=== PATIENT | male | born 1985 | race Caucasian/White ===

== ENCOUNTER 2016-09-14 12:50 | Observation (INO) | payer BC ==
[~2016-09-14] VITALS: Ht 188 cm; Wt 115.5 kg
[2016-09-14] MEDS ORDERED: DIAZEPAM INJ 5 MG/ML 2 ML CARP IV STA (13:06)
[2016-09-14] MEDS ORDERED: METOCLOPRAMIDE HCL INJ 5 MG/ML 2 ML VIAL IV STA (13:06)
[2016-09-14] MEDS ORDERED: SODIUM CHLORIDE 0.9% 1000ML 1,000 ML IV STA (13:06)
--- NOTE | 2016-09-14 13:11 | EMERGENCY ROOM VISIT NOTE ---
History Report prepared by Yuly: Taylor Anton Under the Supervision of: Dr. David Jewell M.D. First contact with patient: 12:57 Chief Complaint: DIZZY Stated Complaint: SEVERE DIZZINESS Nursing Triage Summary: pt has been having continued dizziness and nausea, has been taking meclazine and zofran and feels like it is just making him sleepy pt was told her has benign vertigo at [facility] History of Present Illness The patient is a 31 year old male who presents to the Emergency Room with complaints of persistent dizziness that began four days ago. The patient's reports that the patient arrived back from [place] Tuesday evening and became dizzy. The patient states that it started suddenly Tuesday as he was getting out of his car, noting that he became woozy. The patient's states that the patient was evaluated at [facility] Tuesday and had a normal CT scan. She states that the patient was prescribed Zofran for his nausea and Meclizine for his dizziness, but denies any relief. The patient states that he notices the dizziness persistently with standing, but notes that if he sits up for awhile, his symptoms dissipate. He additionally notes nausea with standing. The patient's states that they have tried the Anika Maneuver 8-10 times without any relief of his symptoms. The patient states that he still notices dizziness even when his eyes are closed. He reports difficulty ambulating due to the dizziness. 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 The patient notes that a few months ago he noticed intermittent blurred vision and dizziness. He states that he was evaluated at an urgent care center in [place] and prescribed medication for allergies. Source of History: patient Onset: four days ago Position: other (global) Quality: other (dizziness) Timing: other (persistent) Associated Symptoms: + nausea Note: Associated Symptoms: difficulty ambulating Review of Systems See HPI for pertinent positives & negatives. A total of 10 systems reviewed and were otherwise negative. Past Medical & Surgical Medical Problems: (1) Acid reflux (2) IBS (irritable bowel syndrome) Family History Diabetes mellitus Heart disease Hypertension Social History Smoking Status: Never Smoker Smokeless Tobacco Use: No Alcohol Use: occasionally Marital Status: Housing Status: lives with family Occupation Status: employed Current/Historical Medications Scheduled Meclizine Hcl (Meclizine Hcl), Unknown Dose PO Q6 Scheduled PRN Ondansetron Hcl (Zofran), Unknown Dose PO Q6 PRN for Nausea Allergies Coded Allergies: No Known Allergies (Unverified , 09/14/16) Physical Exam Vital Signs Date Time Temp Pulse Resp B/P (MAP) Pulse Ox O2 Delivery O2 Flow Rate FiO2 09/14/16 16:11 77 16 125/67 100 Room Air 09/14/16 14:11 84 18 134/81 98 Room Air 09/14/16 13:41 65 16 145/86 100 Room Air 87 164/90 71 165/97 09/14/16 13:27 59 09/14/16 13:22 100 Room Air 09/14/16 12:54 36.7 83 18 135/82 100 Physical Exam GENERAL: Patient is a healthy-appearing well-nourished male, ataxic when walking HEAD: Normocephalic atraumatic EYES: Ocular movements intact pupils equal and react to light OROPHARYNX mucous membranes are moist no exudates present no erythema or edema present NECK: Supple no nuchal rigidity CHEST: Good equal expansion LUNGS: Clear and equal to auscultation CARDIAC: Normal S1 and S2 ABDOMEN: Soft nontender no guarding BACK: No CVA tenderness EXTREMITIES: No pain upon palpation normal muscle strength in all groups no clubbing cyanosis or edema NEURO: Patient is following commands and answering questions appropriately. Alert and oriented x3 Cranial Nerves 2-12 grossly intact Medical Decision & Procedures ER Provider Diagnostic Interpretation: Radiology results as stated below per my review and radiologist interpretation: MRA OF THE NECK WITH AND WITHOUT CONTRAST CLINICAL HISTORY: Vertigo. COMPARISON STUDY: None. TECHNIQUE: Unenhanced and contrast-enhanced MRA of the neck was performed. Injection of 11.5 mL of Gadavist IV was uneventful. NASCET criteria were utilized to estimate the degree of carotid stenosis. FINDINGS: The bilateral common carotid, internal carotid and vertebral arteries are patent. There is no stenosis within these vessels. There is no evidence for dissection. IMPRESSION: Normal MRA of the neck. Electronically signed by: Amanuel Olivia M.D. 09/14/2016 3:53 PM Dictated Date/Time: 09/14/2016 3:45 PM MRA OF THE INTRACRANIAL CIRCULATION WITHOUT CONTRAST CLINICAL HISTORY: Severe dizziness. COMPARISON STUDY: None. TECHNIQUE: Utilizing a 1.5 Jennifer magnet and 3-D [id number] technique, unenhanced MRA of the intracranial circulation was obtained. FINDINGS: The bilateral M1, M2, A1 and A2 segments are patent. There is no intracranial aneurysm. No abrupt vessel cut off is identified. Posterior circulation is also intact. An anterior communicating artery is present. IMPRESSION: Normal MRA of the intracranial circulation. Electronically signed by: Amanuel Olivia M.D. 09/14/2016 3:41 PM Dictated Date/Time: 09/14/2016 3:38 PM MRI OF THE BRAIN WITHOUT CONTRAST CLINICAL HISTORY: Severe dizziness. COMPARISON STUDY: None. TECHNIQUE: Utilizing a 1.5 Jennifer magnet and dedicated coil, multiplanar, multiecho imaging of the brain was performed without IV contrast. FINDINGS: There are no areas of restricted diffusion. No acute intracranial hemorrhage, midline shift or mass effect is present. Brain volume is normal. Ventricular system is normal. Basilar cisterns are patent. There are no extra-axial collections. No intracranial masses identified on this unenhanced exam. A prominent perivascular space within the left basal ganglia is noted. Calvarial signal is normal. Orbits are unremarkable. There is no fluid within the bilateral mastoid air cells. No parenchymal signal abnormality is present. IMPRESSION: Normal unenhanced MRI of the brain. Electronically signed by: Amanuel Olivia M.D. 09/14/2016 3:38 PM Dictated Date/Time: 09/14/2016 3:35 PM Laboratory Results 09/14/16 13:15 Red Blood Count 5.40, Mean Corpuscular Volume 87.4, Mean Corpuscular Hemoglobin 30.0, Mean Corpuscular Hemoglobin Concent 34.3, Mean Platelet Volume 10.5, Neutrophils (%) (Auto) 75.9, Lymphocytes (%) (Auto) 18.0, Monocytes (%) (Auto) 5.3, Eosinophils (%) (Auto) 0.3, Basophils (%) (Auto) 0.2, Neutrophils # (Auto) 7.90, Lymphocytes # (Auto) 1.87, Monocytes # (Auto) 0.55, Eosinophils # (Auto) 0.03, Basophils # (Auto) 0.02 09/14/16 13:15 Test 09/14/16 13:15 09/14/16 13:23 White Blood Count 10.40 K/uL (4.8-10.8) Red Blood Count 5.40 M/uL (4.7-6.1) Hemoglobin 16.2 g/dL (14.0-18.0) Hematocrit 47.2 % (42-52) Mean Corpuscular Volume 87.4 fL (80-100) Mean Corpuscular Hemoglobin 30.0 pg (25-34) Mean Corpuscular Hemoglobin Concent 34.3 g/dl (32-36) Platelet Count 224 K/uL (130-400) Mean Platelet Volume 10.5 fL (7.4-10.4) Neutrophils (%) (Auto) 75.9 % Lymphocytes (%) (Auto) 18.0 % Monocytes (%) (Auto) 5.3 % Eosinophils (%) (Auto) 0.3 % Basophils (%) (Auto) 0.2 % Neutrophils # (Auto) 7.90 K/uL (1.4-6.5) Lymphocytes # (Auto) 1.87 K/uL (1.2-3.4) Monocytes # (Auto) 0.55 K/uL (0.11-0.59) Eosinophils # (Auto) 0.03 K/uL (0-0.5) Basophils # (Auto) 0.02 K/uL (0-0.2) RDW Standard Deviation 42.5 fL (36.4-46.3) RDW Coefficient of Variation 13.4 % (11.5-14.5) Immature Granulocyte % (Auto) 0.3 % Immature Granulocyte # (Auto) 0.03 K/uL (0.00-0.02) Anion Gap 6.0 mmol/L (3-11) Est Creatinine Clear Calc Drug Dose 123.0 ml/min Estimated GFR () 94.1 Estimated GFR (Non- 81.2 BUN/Creatinine Ratio 8.3 (10-20) Bedside Glucose 95 mg/dl (70-99) Calcium Level 9.4 mg/dl (8.5-10.1) Total Bilirubin 0.6 mg/dl (0.2-1) Direct Bilirubin 0.1 mg/dl (0-0.2) Aspartate Amino Transf (AST/SGOT) 11 U/L (15-37) Alanine Aminotransferase (ALT/SGPT) 34 U/L (12-78) Alkaline Phosphatase 69 U/L (45-117) Total Protein 8.5 gm/dl (6.4-8.2) Albumin 4.3 gm/dl (3.4-5.0) Thyroid Stimulating Hormone (TSH) 1.950 uIu/ml (0.300-4.500) Urine Color YELLOW Urine Appearance CLEAR (CLEAR) Urine pH 6.5 (4.5-7.5) Urine Specific [place] 1.023 (1.000-1.030) Urine Protein NEG (NEG) Urine Glucose (UA) NEG (NEG) Urine Ketones TRACE (NEG) Urine Occult Blood NEG (NEG) Urine Nitrite NEG (NEG) Urine Bilirubin NEG (NEG) Urine Urobilinogen NEG (NEG) Urine Leukocyte Esterase NEG (NEG) Labs reviewed by ED physician. Medications Administered Medications (Trade) Dose Ordered Sig/Jessica Route Start Time Stop Time Status Last Admin Dose Admin Diazepam (Valium Inj) 10 mg NOW STAT IV 09/14/16 13:06 09/14/16 13:09 DC 09/14/16 13:40 10 MG Metoclopramide HCl (Reglan Inj) 10 mg NOW STAT IV 09/14/16 13:06 09/14/16 13:09 DC 09/14/16 13:40 10 MG Sodium Chloride 1,000 ml @ 999 mls/hr Q1H1M STAT IV 09/14/16 13:06 09/14/16 14:06 DC 09/14/16 13:40 999 MLS/HR Meclizine HCl (Antivert Tab) 25 mg NOW STAT PO 09/14/16 16:02 09/14/16 16:03 DC 09/14/16 16:12 25 MG ECG Indication: other (dizziness) Rate (beats per minute): 66 Rhythm: normal sinus Findings: no acute ischemic change, no ectopy ED Course 1259: Past medical records reviewed. The patient was evaluated in room C1B. A complete history and physical examination was performed. 1306: Ordered Sodium Chloride 1000 ml @ 999 mls/hr IV, Reglan Inj 10 mg IV, Valium Inj 10 mg IV. 1602: Ordered Meclizine HCl 25 mg PO. 1615: I reevaluated the patient at this time. I performed the Steedman Hallpike Maneuver on the patient and it appears to affect his left side. I then performed the Anika Maneuver on him several times without success. I discussed all the exam findings with him and I discussed the treatment plan. He verbalized complete understanding and agreement. He is going to be evaluated for further treatment. 1638: Ordered Promethazine HCl 25 m/Sodium Chloride 51 ml @ 204 mls/hr IV. 1641: I discussed the patients case with DIAMOND Lanza. He is going to evaluate the patient for further treatment. Medical Decision Differential diagnosis: Etiologies such as appendicitis, diverticulitis, PUD, biliary pathology, UTI, pancreatitis, obstruction, mesenteric ischemia, aortic pathology, infections, inflammatory bowel disease, renal colic, as well as others were entertained. Blood Pressure Screening: Patient was found to have an elevated blood pressure and was referred to their primary care doctor for recheck and further treatment Medication Reconciliation: I attest that I have personally reviewed the patient' s current medication list This is a 31-year-old male who presents emergency department complaining of severe dizziness. The patient is severely ataxic and walks right into [place]. He was at [facility] 4 days ago when he had a CT of the head. This was reported as normal. Based on this finding the patient was sent for an MRI MRA of the head and neck. These are found to be normal as well. The patient was given 10 of Valium, meclizine. Repeat examination revealed no improvement in the patient's symptoms. I attempted to do Anika maneuvers on the patient to relieve his dizziness with no success. Consults Time Called: 1634 Consulting Physician: DIAMOND Lanza Returned Call: 1641 I discussed the patients case with DIAMOND Lanza. He is going to evaluate the patient for further treatment. Impression Primary Impression: Vertigo Scribe Attestation The scribe's documentation has been prepared under my direction and personally reviewed by me in its entirety. I confirm that the note above accurately reflects all work, treatment, procedures, and medical decision making performed by me. Departure Information Dispostion Being Evaluated By Hospitalist
[2016-09-14 13:27] LABS: BASO % 0.2 %; BASO ABS # 0.02 K/uL (0-0.2); COMPLETE YES; EOS % 0.3 %; HEMATOCRIT 47.2 % (42-52); IG% 0.3 %; LYMPH ABS # 1.87 K/uL (1.2-3.4); MEAN CELL VOLUME 87.4 fL (80-100); MEAN CORPUSCULAR HGB CONC 34.3 g/dl (32-36); MEAN PLATELET VOLUME 10.5 fL (7.4-10.4); MONO % 5.3 %; NEUT % 75.9 %; PLATELET COUNT 224 K/uL (130-400)
[2016-09-14 13:37] LABS: URINE APPEARANCE CLEAR (CLEAR); URINE BILIRUBIN NEG (NEG); URINE COLOR YELLOW; URINE NITRITE NEG (NEG); URINE PH 6.5 (4.5-7.5); URINE SPECIFIC GRAVITY 1.023 (1.000-1.030); UROBILINOGEN NEG (NEG)
[2016-09-14 13:46] LABS: MANUAL MICROSCOPIC REQUIRED? NO; REVIEW REQ? NO
[2016-09-14 13:50] LABS: BUN/CREATININE RATIO 8.3 (10-20); CALCIUM 9.4 mg/dl (8.5-10.1); CREATININE 1.2 mg/dl (0.60-1.40)
[2016-09-14 14:00] LABS: THYROID STIMULATING HORMONE 1.95 uIu/ml (0.300-4.500)
--- NOTE | 2016-09-14 15:39 | DIAGNOSTIC IMAGING REPORT ---
MRI OF THE BRAIN WITHOUT CONTRAST CLINICAL HISTORY: Severe dizziness. COMPARISON STUDY: None. TECHNIQUE: Utilizing a 1.5 Jennifer magnet and dedicated coil, multiplanar, multiecho imaging of the brain was performed without IV contrast. FINDINGS: There are no areas of restricted diffusion. No acute intracranial hemorrhage, midline shift or mass effect is present. Brain volume is normal. Ventricular system is normal. Basilar cisterns are patent. There are no extra-axial collections. No intracranial masses identified on this unenhanced exam. A prominent perivascular space within the left basal ganglia is noted. Calvarial signal is normal. Orbits are unremarkable. There is no fluid within the bilateral mastoid air cells. No parenchymal signal abnormality is present. IMPRESSION: Normal unenhanced MRI of the brain. Electronically signed by: Amanuel Olivia M.D. 09/14/2016 3:38 PM Dictated Date/Time: 09/14/2016 3:35 PM
--- NOTE | 2016-09-14 15:42 | DIAGNOSTIC IMAGING REPORT ---
MRA OF THE INTRACRANIAL CIRCULATION WITHOUT CONTRAST CLINICAL HISTORY: Severe dizziness. COMPARISON STUDY: None. TECHNIQUE: Utilizing a 1.5 Jennifer magnet and 3-D [id number] technique, unenhanced MRA of the intracranial circulation was obtained. FINDINGS: The bilateral M1, M2, A1 and A2 segments are patent. There is no intracranial aneurysm. No abrupt vessel cut off is identified. Posterior circulation is also intact. An anterior communicating artery is present. IMPRESSION: Normal MRA of the intracranial circulation. Electronically signed by: Amanuel Olivia M.D. 09/14/2016 3:41 PM Dictated Date/Time: 09/14/2016 3:38 PM
[2016-09-14] MEDS ORDERED: GADAVIST IV PRN (15:45)
--- NOTE | 2016-09-14 15:54 | DIAGNOSTIC IMAGING REPORT ---
MRA OF THE NECK WITH AND WITHOUT CONTRAST CLINICAL HISTORY: Vertigo. COMPARISON STUDY: None. TECHNIQUE: Unenhanced and contrast-enhanced MRA of the neck was performed. Injection of 11.5 mL of Gadavist IV was uneventful. NASCET criteria were utilized to estimate the degree of carotid stenosis. FINDINGS: The bilateral common carotid, internal carotid and vertebral arteries are patent. There is no stenosis within these vessels. There is no evidence for dissection. IMPRESSION: Normal MRA of the neck. Electronically signed by: Amanuel Olivia M.D. 09/14/2016 3:53 PM Dictated Date/Time: 09/14/2016 3:45 PM
[2016-09-14] MEDS ORDERED: MECLIZINE HCL 25 MG TAB PO STA (16:02)
[2016-09-14] MEDS ORDERED: MECL1CHW4 PO (16:36)
[2016-09-14] MEDS ORDERED: ONDA4TAB46 PO (16:36)
[2016-09-14] MEDS ORDERED: PROMETHAZINE HCL INJ 25 MG in SODIUM CHLORIDE 0.9% 50ML 50 ML IV STA (16:39)
[2016-09-14] MEDS ORDERED: PROMETHAZINE HCL INJ 12.5 MG in SODIUM CHLORIDE 0.9% 50ML 50 ML IV PRN (17:00)
[2016-09-14] MEDS ORDERED: LORAZEPAM 2 MG/ML 1 ML VIAL IV PRN (17:00)
--- NOTE | 2016-09-14 17:46 | History and Physical ---
History & Physical Date & Time of Service: Sep 14, 2016 at 17:38 Chief Complaint: Severe Dizziness Primary Care Physician: No Doctor, Assigned History of Present Illness This 31-year-old male who presents with intractable vertigo. 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 Almost immediately began feeling dizzy. The patient then got worse throughout the evening and was unable to get up because of instability of gait and dizziness. Patient sought care at a local emergency department where CT scan of laboratories. He was treated medically given meclizine therapy. The patient did not improve in fact worsen to the point where he cannot walk without walking into [place]. The patient states that the only other unusual thing about his health is a few weeks ago he was told he had allergies because he had fluid behind his tympanic membrane and was given an antihistamine. Additionally about 1 month ago he noticed back with sciatica took naproxen with help. In the emergency room the patient was very unstable to any of her vestibular testing. He denies any focal neurological deficits. Painful MRI and MRA of his brain and neck without any evidence of abnormalities. He is being observed in a facility because of intractable vertigo and instability of gait Past Medical/Surgical History Medical Problems: (1) Acid reflux Status: Chronic (2) IBS (irritable bowel syndrome) Status: Chronic Family History Diabetes mellitus Heart disease Hypertension Social History Smoking Status: Never Smoker Smokeless Tobacco Use: No Marital Status: Occupational Status: employed Allergies Coded Allergies: No Known Allergies (Unverified , 09/14/16) Home Medications Scheduled Meclizine Hcl (Meclizine Hcl), Unknown Dose PO Q6 Scheduled PRN Ondansetron Hcl (Zofran), Unknown Dose PO Q6 PRN for Nausea Review of Systems ROS: well nourished well developed NC/AT PERRL EOMI Sclera normal, mild clonus with rightward gaze Neck no JVD, no adenopathy, trachea midline Car is regular without murmur Lungs are clear no focal air loss, no cough Abd is soft non tender normal bowel sounds Extremity, no edema no cyanosis Skin no rash or lesions Neuro Alert and oriented X3 no focal loss of strength or sensation upper or lower extremity he does have symptoms with looking to the right and moving head to the right Psyche no anxiety or depression Physical Exam Vital Signs Date Time Temp Pulse Resp B/P (MAP) Pulse Ox O2 Delivery O2 Flow Rate FiO2 09/14/16 16:11 77 16 125/67 100 Room Air 09/14/16 14:11 84 18 134/81 98 Room Air 09/14/16 13:41 65 16 145/86 100 Room Air 87 164/90 71 165/97 09/14/16 13:27 59 09/14/16 13:22 100 Room Air 09/14/16 12:54 36.7 83 18 135/82 100 General Appearance: WD/WN, + moderate distress Eyes: PERRL, EOMI, + pertinent finding (mild clonus with rightward gaze) ENT: + pertinent finding (left tympanic membrane with clear fluid behind it) Neck: supple, no JVD Respiratory/Chest: chest non-tender, lungs clear, normal breath sounds Cardiovascular: regular rate, rhythm, no murmur Abdomen/GI: normal bowel sounds, non tender, soft, occult blood negative Genitourinary - Male: normal male genitalia Back: normal inspection, no CVA tenderness, no muscle spasm Extremities/Musculoskelatal: no pedal edema, normal range of motion Neurologic/Psych: jailer II-XII nml as tested, no motor/sensory deficits, alert, oriented x 3, + pertinent finding (he has no palmar drift when tested however he is marked reproduction of symptoms with any head movement) Skin: normal color, warm/dry, no rash Diagnostics Laboratory Results Results Past 24 Hours Test 09/14/16 13:15 09/14/16 13:23 Range/Units White Blood Count 10.40 4.8-10.8 K/uL Red Blood Count 5.40 4.7-6.1 M/uL Hemoglobin 16.2 14.0-18.0 g/dL Hematocrit 47.2 42-52 % Mean Corpuscular Volume 87.4 80-100 fL Mean Corpuscular Hemoglobin 30.0 25-34 pg Mean Corpuscular Hemoglobin Concent 34.3 32-36 g/dl Platelet Count 224 130-400 K/uL Mean Platelet Volume 10.5 7.4-10.4 fL Neutrophils (%) (Auto) 75.9 % Lymphocytes (%) (Auto) 18.0 % Monocytes (%) (Auto) 5.3 % Eosinophils (%) (Auto) 0.3 % Basophils (%) (Auto) 0.2 % Neutrophils # (Auto) 7.90 1.4-6.5 K/uL Lymphocytes # (Auto) 1.87 1.2-3.4 K/uL Monocytes # (Auto) 0.55 0.11-0.59 K/uL Eosinophils # (Auto) 0.03 0-0.5 K/uL Basophils # (Auto) 0.02 0-0.2 K/uL RDW Standard Deviation 42.5 36.4-46.3 fL RDW Coefficient of Variation 13.4 11.5-14.5 % Immature Granulocyte % (Auto) 0.3 % Immature Granulocyte # (Auto) 0.03 0.00-0.02 K/uL Sodium Level 141 136-145 mmol/L Potassium Level 4.0 3.5-5.1 mmol/L Chloride Level 105 98-107 mmol/L Carbon Dioxide Level 30 21-32 mmol/L Anion Gap 6.0 3-11 mmol/L Blood Urea Nitrogen 10 7-18 mg/dl Creatinine 1.20 0.60-1.40 mg/dl Est Creatinine Clear Calc Drug Dose 123.0 ml/min Estimated GFR () 94.1 Estimated GFR (Non- 81.2 BUN/Creatinine Ratio 8.3 10-20 Bedside Glucose 95 70-99 mg/dl Random Glucose 88 70-99 mg/dl Calcium Level 9.4 8.5-10.1 mg/dl Total Bilirubin 0.6 0.2-1 mg/dl Direct Bilirubin 0.1 0-0.2 mg/dl Aspartate Amino Transf (AST/SGOT) 11 15-37 U/L Alanine Aminotransferase (ALT/SGPT) 34 12-78 U/L Alkaline Phosphatase 69 45-117 U/L Total Protein 8.5 6.4-8.2 gm/dl Albumin 4.3 3.4-5.0 gm/dl Thyroid Stimulating Hormone (TSH) 1.950 0.300-4.500 uIu/ml Urine Color YELLOW Urine Appearance CLEAR CLEAR Urine pH 6.5 4.5-7.5 Urine Specific [place] 1.023 1.000-1.030 Urine Protein NEG NEG Urine Glucose (UA) NEG NEG Urine Ketones TRACE NEG Urine Occult Blood NEG NEG Urine Nitrite NEG NEG Urine Bilirubin NEG NEG Urine Urobilinogen NEG NEG Urine Leukocyte Esterase NEG NEG CXR normal Normal EKG Impression Assessment and Plan 31-year-old male with intractable vertigo Patient will be observed in our facility. He'll be given Transderm scope patch. Meclizine 50 mg every 8. Ativan for backup help with vertigo. The patient on antiemetics of Zofran and Phenergan If the patient improved the neurology consequently undertaken in the morning DVT prevention is early ambulation. VTE Prophylaxis VTE Risk Assessment Done? Y/N: Yes Risk Level: Low Given or contraindicated: Treatment not indicated
[2016-09-14] MEDS ORDERED: POLYETHYLENE (MIRALAX) 17 GM PACK PO PRN (18:30)
[2016-09-14] MEDS ORDERED: MAGNESIUM HYDROXIDE SUSP 30 ML UDC PO PRN (18:30)
[2016-09-14] MEDS ORDERED: ONDANSETRON INJ 2 MG/ML 2 ML VIAL IV PRN (18:30)
[2016-09-14] MEDS ORDERED: ACETAMINOPHEN 325 MG TAB PO PRN (18:30)
[2016-09-14] MEDS ORDERED: IV FLUIDS COMPLETED PRN (18:45)
[2016-09-14 19:25] LABS: LYME DISEASE AB IGG NEG (NEG); LYME DISEASE AB IGM NEG (NEG)
[2016-09-14] MEDS ORDERED: LORAZEPAM INJ 1 MG in SYRINGE 0.5 ML IV PRN (19:30)
[2016-09-14 19:34] VITALS: BP 128/77; PULSE 67; TEMP 36.9; O2SAT 98
[2016-09-14 19:41] VITALS: BP 128/77; PULSE 67; TEMP 36.9; O2SAT 100; Ht 188 cm; Wt 115.5 kg
[2016-09-14] MEDS ORDERED: SCOPOLAMINE 1.5 MG TDSY TD SCH (20:00)
[2016-09-14] MEDS: MECLIZINE HCL 25 MG TAB PO SCH (21:22)
[2016-09-14 23:41] VITALS: BP 122/71; PULSE 62; TEMP 36.7; O2SAT 97
[2016-09-15] MEDS: CHECK SCOPOLAMINE PATCH PLACEMENT SCH ×3 (00:18→15:26)
[2016-09-15 05:52] VITALS: BP 119/71; PULSE 64; TEMP 36.7; O2SAT 98
[2016-09-15 05:53] VITALS: BP 124/79; PULSE 73; TEMP 36.7; O2SAT 98
[2016-09-15 05:54] VITALS: BP 126/82; PULSE 76; TEMP 36.7; O2SAT 95
[2016-09-15 07:25] LABS: MEAN CELL VOLUME 86.5 fL (80-100); MEAN CORPUSCULAR HEMOGLOBIN 28.6 pg (25-34); MEAN PLATELET VOLUME 10.5 fL (7.4-10.4); PLATELET COUNT 219 K/uL (130-400); RED BLOOD COUNT 4.97 M/uL (4.7-6.1)
[2016-09-15 07:55] LABS: BUN/CREATININE RATIO 8.6 (10-20); CALCIUM 8.8 mg/dl (8.5-10.1); CREATININE 1.2 mg/dl (0.60-1.40)
[2016-09-15] MEDS: MECLIZINE HCL 25 MG TAB PO SCH (08:15)
[2016-09-15] MEDS ORDERED: LORAZEPAM 1 MG TAB PO PRN (13:45)
[2016-09-15] MEDS ORDERED: ANT25 PO (15:09)
[2016-09-15] MEDS ORDERED: ATV1 PO (15:09)
[2016-09-15] MEDS ORDERED: SCOP1.5D2 TD (15:09)
--- NOTE | 2016-09-15 15:13 | Discharge Instructions ---
Discharge Instructions Date of Service Sep 15, 2016. Admission Reason for Admission: Intractable Vertigo Discharge Discharge Diagnosis / Problem: Intractable vertigo Discharge Goals Goal(s): Improve function, Improve disease control Activity Recommendations Activity Limitations: resume your previous activity Lifting Limitations: none Exercise/Sports Limitations: as tolerated May Resume Sexual Activity: when tolerated Shower/Bathe: no limitations Driving or Machine Use: may resume on Thursday 09/21 . Instructions / Follow-Up Instructions / Follow-Up Medications: - SCOPOLAMINE PATCH: leave on for three days, make sure to remove after that time, if you do not have vertigo you can try keeping it off - MECLIZINE: 50mg twice a day, take scheduled for the next 5 days and then use as needed - ATIVAN: for additional treatment of vertigo, suggest only getting filled if your symptoms are not controlled on Scopolamine and Meclizine and maneuvers continue medications and maneuvers shown to you by therapy vertigo should resolve over the next several days FOLLOW UP - as needed for any further vertigo Current Hospital Diet Patient's current hospital diet: Regular Diet Discharge Diet Recommended Diet: Regular Diet Pending Studies Studies pending at discharge: no Work Instructions Return To Work: 1 week (may return on 09/21) Lifting Limitations: none Medical Emergencies . Who to Call and When: Medical Emergencies: If at any time you feel your situation is an emergency, please call 911 immediately. . Non-Emergent Contact Non-Emergency issues call your: Primary Care Provider Call Non-Emergent contact if: you have any medication questions . . "Provider Documentation" section prepared by Arturo Venegas. . VTE Core Measure Inpt VTE Proph given/why not?: Treatment not indicated [place] Drug Monitoring Program Search Results: no issues identified
[2016-09-15 16:13] VITALS: BP 126/82; PULSE 76; TEMP 36.7; O2SAT 95
--- NOTE | 2016-09-16 07:52 | Discharge Summary ---
Discharge Summary Date of Service Sep 16, 2016. Discharge Summary Admission Date: Sep 14, 2016 at 18:27 Discharge Date: Sep 15, 2016 Discharge Disposition: Home Principal Diagnosis: Benign positional vertigo Procedures: Anika and Dicks-Hallpike maneuvers, multiple treatments by therapy Consultations: Physical therapy Medication Reconciliation New Medications: Lorazepam (Lorazepam) 1 Mg Tab 1 MG PO Q8 PRN for Dizziness or Vertigo, #20 TAB 0 Refills Meclizine HCl (Meclizine HCl) 25 Mg Tab 50 MG PO BID, #10 TAB 1 Refill Scopolamine (Transderm-Scop) 1 Mg/3 Days Dis 1.5 MG TD Q72H, #3 PATCH 1 Refill Continued Medications: Ondansetron Hcl (Zofran) 4 Mg Tab Unknown Dose PO Q6 PRN for Nausea, TAB Discontinued Medications: Meclizine Hcl (Meclizine Hcl) 25 Mg Chw Unknown Dose PO Q6 Discharge Exam Patient seen in the early afternoon initially, was sill feeling quite dizzy, only sitting up at 30% angle in bed. However, he was revisited by therapy later in the afternoon and he was able to walk around the [place] and then sat in a chair for 30 minutes. He reported that his symptoms had improved to the point that he felt he could go home. PT was going to visit with him once more and his was going to be present so she could see the vertigo exercises and then help him at home. Given scripts for scopolamine, meclizine and Ativan for breakthrough symptoms. Review of Systems: Constitutional: No fever, No chills, No sweats, No weight loss, No weakness , No fatigue, No problem reported Eyes: No worsening of vision, No eye pain, No redness, No discharge, No diplopia, No problem reported ENT: No hearing loss, No unusual epistaxis, No nasal symptoms, No sore throat, No tinnitus, No dental problems, No trouble swallowing, No problem reported Respiratory: No cough, No sputum, No wheezing, No shortness of breath, No dyspnea on exertion, No dyspnea at rest, No hemoptysis, No problem reported Cardiovascular: No chest pain, No orthopnea, No PND, No edema, No claudication, No palpitations, No problem reported Abdomen: No pain, No nausea, No vomiting, No diarrhea, No constipation, No GI bleeding, No problem reported Musculoskeletal: No joint pain, No muscle pain, No swelling, No calf pain, No problem reported Genitourinary - Male: No hematuria, No dysuria, No urinary frequency, No urinary urgency Neurologic: + vertigo (improving slowly), No memory loss, No paralysis, No weakness, No numbness/tingling, No balance problems, No problem reported Psychiatric: No depression symptoms, No anhedonism, No anxiety, No insomnia , No substance abuse, No problem reported Endocrine: No fatigue, No excessive thirst, No excessive urination, No problem reported Hematologic / Lymphatic: No abnormal bleeding/bruising, No clotting problems , No swollen lymph nodes, No night sweats, No problem reported Integumentary: No rash, No itch, No new/changing skin lesions, No color change, No bleeding, No problem reported Physical Exam: General Appearance: WD/WN, no apparent distress Eyes: normal inspection, EOMI, sclerae normal ENT: normal ENT inspection, hearing grossly normal, pharynx normal Neck: supple, no adenopathy, no JVD, trachea midline Respiratory/Chest: chest non-tender, lungs clear, normal breath sounds, no respiratory distress, no accessory muscle use Cardiovascular: regular rate, rhythm, no edema, no gallop, no JVD, no murmur , normal peripheral pulses Abdomen / GI: normal bowel sounds, non tender, soft, no organomegaly Extremities: normal inspection, no calf tenderness, normal capillary refill , no pedal edema, normal range of motion, pelvis stable 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 No recent sinus or ear infections. Mild improvement in the ED with typical measures so he was observed for further care. - Intractable vertigo and nausea: improved to the point that the patient felt well enough to go home likely peripheral, benign positional as he had improvement with vertigo therapy MRI brain, MRA head and neck all normal continue Scopolamine patch q3 days, Meclizine PRN, Ativan PRN for any breakthrough symptoms Total Time Spent: Less than 30 minutes This includes examination of the patient, discharge planning, medication reconciliation, and communication with other providers. Discharge Instructions Please refer to the electronic Patient Visit Report (Discharge Instructions) for additional information. Follow-Up PCP as needed for vertigo
== END 2016-09-15 17:00 | disposition home or self-care (01) ==
LOC: C.EDB 12:52 → C.MS2W 18:27 → ENRESERV 18:33
PROVIDERS: ADMIT Internal Medicine; ATTEND Internal Medicine
DX: H81.10 Benign paroxysmal vertigo, unspecified ear (principal); Z88.3 Allergy status to other anti-infective agents; Z82.49 Family history of ischemic heart disease and other diseases of the circulatory system